=== PATIENT | male | born 1945 | race Caucasian/White ===

== ENCOUNTER 2017-08-12 09:36 | Outpatient (CLI) | payer OTHER ==
[2017-08-12] MEDS ORDERED: GADOPENTETATE DIMEGLUMINE 15 ML VIAL IV ONE (12:05)
== END 2017-08-12 18:49 | disposition home or self-care (01) ==
LOC: SMI 09:36 → EEVIPCON 09:36 → SMI 18:49
PROVIDERS: ATTEND Family Medicine
DX: G31.89 Other specified degenerative diseases of nervous system (principal); R60.0 Localized edema
CPT/HCPCS: 70553; A9579 ×2